=== PATIENT | male | born 1990 | race Caucasian/White ===

== ENCOUNTER 2016-07-19 09:50 | Emergency (ER) | payer OTHER, BC ==
[~2016-07-19] VITALS: Ht 182.9 cm; Wt 77.6 kg
[~2016-07-19 09:50] MED LIST: TYLE3 PO
[2016-07-19 10:04] VITALS: BP 140/92; PULSE 90; RESP 16; TEMP 98; O2SAT 97
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
[2016-07-19] MEDS ORDERED: CYCL5TAB PO ×2 (11:07→11:08)
== END 2016-07-19 11:27 | disposition home or self-care (01) ==
LOC: PHEFT 09:50
DX: S16.1XXA Strain of muscle, fascia and tendon at neck level, initial encounter (principal); M62.838 Other muscle spasm; F17.210 Nicotine dependence, cigarettes, uncomplicated; V43.52XA Car driver injured in collision with other type car in traffic accident, initial encounter; Y93.89 Activity, other specified; Y92.410 Unspecified street and highway as the place of occurrence of the external cause; Y99.8 Other external cause status
CPT/HCPCS: 99283

== ENCOUNTER 2016-07-28 10:13 | Emergency (ER) | payer BC ==
[~2016-07-28] VITALS: Ht 182.9 cm; Wt 75.0 kg
[~2016-07-28 10:13] MED LIST changes: +CYCL5TAB PO; -TYLE3 PO
[2016-07-28 10:21] VITALS: BP 135/82; PULSE 84; RESP 16; TEMP 98; O2SAT 97
[2016-07-28] MEDS ORDERED: PRED50 PO (10:31)
--- NOTE | 2016-07-28 10:32 | PD ---
HPI Chief Complaint: Cold / Flu Symptoms Time Seen by Provider: 10:26 Travel History International Travel<30 days: No Contact w/Intl Traveler<30days: No Traveled to known affect area: No History of Present Illness HPI 26-year-old male tobacco user here with complaint of flulike symptoms. Patient has had now 1.5-2 weeks of nasal congestion, postnasal drip, sore throat, cough and chest congestion. Patient states that at this point his symptoms have mostly settled in his chest and he is having cough productive of clear sputum. He smokes one pack per day and notes a history of frequent bronchitis over the course of the last several years. PFSH Past Medical History Diminished Hearing: No Social History Alcohol Use: Yes (WEEKENDS) Tobacco Use: Yes (1PPD) Substance Use: No Allergies-Medications (Allergen,Severity, Reaction): Coded Allergies: No Known Allergies (Verified , 07/28/16) Reported Meds & Prescriptions Reported Meds & Active Scripts Active Prednisone 50 Mg Tab 50 Mg PO DAILY 5 Days Flexeril (Cyclobenzaprine HCl) 5 Mg Tab 5 Mg PO BID Review of Systems Except as stated in HPI: all other systems reviewed are Neg Physical Exam Narrative GENERAL: Well-appearing male in no acute distress SKIN: Focused skin assessment warm/dry. HEAD: Atraumatic. Normocephalic. EYES: Pupils equal and round. No scleral icterus. No injection or drainage. ENT: Nasal mucosa injection. Postnasal drip. Mucous membranes pink and moist. NECK: Supple without nuchal rigidity CARDIOVASCULAR: Regular rate and rhythm. RESPIRATORY: No accessory muscle use. Minimal expiratory wheezing and harsh cough MUSCULOSKELETAL: Normal gait NEUROLOGICAL: Awake and alert. normal speech. PSYCHIATRIC: Appropriate mood and affect; insight and judgment normal. Data Data Last Documented VS Vital Signs Date Time Temp Pulse Resp B/P Pulse Ox O2 Delivery O2 Flow Rate FiO2 07/28/16 10:21 98.0 84 16 135/82 97 MDM Medical Decision Making Medical Screen Exam Complete: Yes Emergency Medical Condition: Yes Medical Record Reviewed: Yes Differential Diagnosis 26-year-old tobacco user here with complaint of 2 weeks of flulike symptoms. Differential includes viral syndrome, bronchitis, sinusitis, pharyngitis, pneumonia. Narrative Course Patient well appearing. Symptoms seem consistent with viral syndrome. Given the duration of his symptoms, we'll treat with steroids for home. Smoking cessation counseling performed. Diagnosis Primary Impression: Bronchitis Additional Impressions: Viral syndrome Tobacco abuse Referrals: Primary Care Physician as needed Patient Instructions: Acute Bronchitis (ED), General Instructions, How to Stop Smoking (ED) Additional Instructions: Steroids as prescribed. Quit smoking cigarettes as discussed. Med/Other Pt SpecificInfo: Prescription(s) given Scripts Prednisone 50 Mg Tab50 Mg PO DAILY 5 Days Ref 0 Prov:Norma Ernst MD 07/28/16 Disposition: 01 DISCHARGE HOME Condition: Stable Norma Ernst MD Jul 28, 2016 10:31
== END 2016-07-28 10:47 | disposition home or self-care (01) ==
LOC: PHED 10:13
DX: J40 Bronchitis, not specified as acute or chronic (principal); B34.9 Viral infection, unspecified; Z72.0 Tobacco use
CPT/HCPCS: 99283

== ENCOUNTER 2016-12-22 08:15 | Emergency (ER) | payer BC ==
[~2016-12-22] VITALS: Ht 182.9 cm; Wt 75.0 kg
[~2016-12-22 08:15] MED LIST changes: -CYCL5TAB PO; +PRED50 PO
[2016-12-22 08:16] VITALS: BP 146/81; PULSE 84; RESP 15; TEMP 98.4; O2SAT 99
--- NOTE | 2016-12-22 08:28 | PD ---
HPI . right eye redness Chief Complaint: Eye Problems/Injury Time Seen by Provider: 08:28 Travel History International Travel<30 days: No Contact w/Intl Traveler<30days: No Traveled to known affect area: No History of Present Illness HPI 26- year old male presents to the ED complaining of right eye pain for the past week. The patient reports that he feels a gritty sensation in his eye as if something is in there. He reports he has tried washing they eye several times and used two different eye drops including one for red eye and then regular rewetting eye drops. He reports that the eye is red and is painful and rates it as a 7/10. He denies wearing any contacts or glasses, or any sick contacts. He denies any rhinorrhea, ear or throat pain. PFSH Past Medical History Diminished Hearing: No Social History Alcohol Use: Yes (WEEKENDS) Tobacco Use: Yes (1PPD) Substance Use: No Allergies-Medications (Allergen,Severity, Reaction): Coded Allergies: No Known Allergies (Verified , 12/22/16) Reported Meds & Prescriptions Reported Meds & Active Scripts Active Erythromycin Opth Oint 5 Mg/Gm Oint 1 Applic RIGHT EYE BID 5 Days Review of Systems General / Constitutional: No: Fever, Chills, Weight Gain, Weight Loss, Other Eyes: Positive: Redness, Foreign Body Sensation, Pain, No: Diploplia, Blurred Vision, Photophobia, Drainage, Tearing, Blind Spots, Visual changes, Blindness, Other HENT: No: Headaches, Vertigo, Lightheadedness, Sore Throat, Rhinitis, Rhinorrhea, Congestion, Nosebleed, Neck Stiffness, Neck Pain, Masses, Gingival Bleeding, Dental Difficulties, Ear Discharge, Earache, Other Cardiovascular: No: Chest Pain or Discomfort, Palpitations, Irregular Rhythm, Tachycardia, Diaphoresis, Syncope, Dyspnea on exertion, Varicosities, Edema, Cyanosis, Varicosities, Phlebitis, Claudication, Other Respiratory: No: Cough, Shortness of Breath, Wheezing, Sneezing, Orthopnea, Hemoptysis, Stridor, Night Sweats, Pleuritic Pain, Other Gastrointestinal: No: Nausea, Vomiting, Diarrhea, Abdominal Pain, Hematemesis, Hematochezia, Constipation, Changes in Bowel Habits, Indigestion, Dysphagia, Loss of Appetite, Other Genitourinary: No: Urgency, Frequency, Dysuria, Nocturia, Hematuria, Decreased Urinary Output, Oliguria, Hesitancy, Dribbling, Incontinence, Pelvic Pain, Flank Pain, Dyspareunia, Discharge, Dysmenorrhea, Menorrhagia, Metorrhagia, Vaginal Bleeding, Other Musculoskeletal: No: Myalgias, Arthralgias, Limited ROM, Weakness, Cramping, Edema, Pain, Atrophy, Other Skin: No Rash, No Itching, No Dryness, No Lumps, No Hives, No Change in Pigmentation, No Change in nails, No Alopecia, No Lesions, No Breast Lumps, No Breast Tenderness, No Breast Swelling, No Other Neurologic: No: Weakness, Dizziness, Syncope, Focal Abnormalities, Coordination Problem, Tremor, Ataxia, Headache, Change in Mentation, Slurred Speech, Paresthesia, Incontinence, Seizures, Sensory Disturbance, Other Psychiatric: No: Anxiety, Depression, Suicidal Ideations, Disorder of Thought, Mood Disorder, Substance Abuse, Homicidal Ideation, Other Endocrine: No: Heat Intolerance, Cold Intolerance, Polyuria, Polydipsia, Other Hematologic/Lymphatic: No: Easy Bruising, Lymph Node Enlargement, Other Physical Exam Narrative GENERAL: AAO 3, no acute distress, well-developed and well-nourished SKIN: Warm and dry. HEAD: Atraumatic. Normocephalic. EYES: Right conjunctiva injected. Pupils equal and round and reactive to light. No drainage from the right eye. Eye staining negative for corneal abrasion or any abnormal findings. There was no visualization of foreign bodies. ENT: No nasal bleeding or discharge. Mucous membranes pink and moist. NECK: Trachea midline. No JVD. CARDIOVASCULAR: Regular rate and rhythm. RESPIRATORY: No accessory muscle use. Clear to auscultation. Breath sounds equal bilaterally. No wheezing, rales or rhonchi. GASTROINTESTINAL: Visual inspection normal. MUSCULOSKELETAL: Extremities without clubbing, cyanosis, or edema. No obvious deformities. NEUROLOGICAL: Awake and alert. No obvious cranial nerve deficits. Motor grossly within normal limits. Five out of 5 muscle strength in the arms and legs. Normal speech. PSYCHIATRIC: Appropriate mood and affect; insight and judgment normal. Data Data Last Documented VS Vital Signs Date Time Temp Pulse Resp B/P (MAP) Pulse Ox O2 Delivery O2 Flow Rate FiO2 12/22/16 09:06 12/22/16 08:16 98.4 84 15 99 Orders Orders Proparacaine 0.5% Opth Soln (Alcaine 0.5 (12/22/16 08:45) [facility] Medical Decision Making Medical Screen Exam Complete: Yes Emergency Medical Condition: Yes Medical Record Reviewed: Yes Differential Diagnosis Viral conjunctivitis versus Bacterial conjunctivitis versus Allergic conjunctivitis Narrative Course 26-year-old male here with right eye redness and irritation. On examination patient appears to have a possible bacterial versus viral conjunctivitis. Eye staining was performed and negative for any type of foreign body. I recommend a course of erythromycin ophthalmic ointment for treatment of possible bacterial conjunctivitis. Ultimately patient will need to follow-up with an street photographer and I have discussed this with him. Patient verbalized understanding of instructions, questions were answered, and thanked me for their care. I advised them if their condition worsens, please return to the nearest emergency room for further care. Procedures Procedure Narrative Performed a corneal abrasion test. The right eye was first anesthesized with Proparacaine, fluorescein sodium was then added to the eye using an ophthalmic strip. Used a slit lamp to inspect the eye for any abrasion. None was seen. Diagnosis Primary Impression: Conjunctivitis Qualified Codes: H10.31 - Unspecified acute conjunctivitis, right eye Referrals: Print Finisher Additional Instructions: Take medications as prescribed. Follow up with your primary care doctor. Return for any worsening pain or symptoms. Med/Other Pt SpecificInfo: Prescription(s) given Scripts Erythromycin Opth Oint (Erythromycin Opth Oint) 5 Mg/Gm Oint 1 APPLIC RIGHT EYE BID for Infection for 5 Days, #1 TUBE 0 Refills Prov: Nabor Perkins MD 12/22/16 Disposition: 01 DISCHARGE HOME Condition: Stable Jane Rose Dec 22, 2016 08:28
[2016-12-22] MEDS ORDERED: PROPARACAINE HCL 0.5% OPHT SOLN 15 ML BTL EACH EYE ONE (08:45)
[2016-12-22] MEDS ORDERED: ERYTOIN10 RIGHT EYE (08:46)
[2016-12-23] MEDS ORDERED: CIPR0.3S2 RIGHT EYE (11:41)
== END 2016-12-22 09:07 | disposition home or self-care (01) ==
LOC: NEPK 08:15
DX: H10.31 Unspecified acute conjunctivitis, right eye (principal); F17.290 Nicotine dependence, other tobacco product, uncomplicated
CPT/HCPCS: 99283

== ENCOUNTER 2016-12-23 10:59 | Emergency (ER) | payer BC ==
[~2016-12-23] VITALS: Ht 182.9 cm; Wt 76.5 kg
[~2016-12-23 10:59] MED LIST changes: +ERYTOIN10 RIGHT EYE
[2016-12-23 11:04] VITALS: BP 145/89; PULSE 69; RESP 16; TEMP 97.5; O2SAT 98
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
[2016-12-23] MEDS ORDERED: CIPR0.3S2 RIGHT EYE (11:41)
== END 2016-12-23 12:08 | disposition home or self-care (01) ==
LOC: PHEFT 10:59
DX: B30.9 Viral conjunctivitis, unspecified (principal)
CPT/HCPCS: 99283